=== PATIENT | female | born 1995 | race Caucasian/White ===

== ENCOUNTER 2021-04-14 05:00 | Inpatient (IN) | payer BC ==
[2021-04-14] MEDS ORDERED: Acetaminophen 500 MG Tab PO ONE (06:00)
[2021-04-14] MEDS ORDERED: Dextrose 5%-Lactated Ringers 1,000 ML IV SCH (06:00)
[2021-04-14] MEDS ORDERED: Celecoxib 200 MG Cap PO ONE (06:00)
[2021-04-14] MEDS ORDERED: cefOXitin 2 GM in Sodium Chloride 0.9% 50 ML IV ONE (06:00)
[2021-04-14] MEDS ORDERED: Scopolamine 1.5 MG Transdermal Patch TOP ONE (06:00)
[2021-04-14] MEDS ORDERED: Rocuronium 50 MG/5 ML Vial ONE ×2 (07:09→08:44)
[2021-04-14] MEDS ORDERED: Succinylcholine 200 MG/10 ML MDV ONE (07:09)
[2021-04-14] MEDS ORDERED: fentaNYL 250 MCG/5 ML SDV ONE ×2 (07:09→07:43)
[2021-04-14] MEDS ORDERED: Neostigmine Methylsulfate 1 MG/ML 5 ML Syringe ONE (07:09)
[2021-04-14] MEDS ORDERED: Propofol 200 MG/20 ML SDV ONE (07:09)
[2021-04-14] MEDS ORDERED: Ondansetron 4 MG/2 ML SDV ONE (07:09)
[2021-04-14] MEDS ORDERED: Dexamethasone 4 MG/ML SDV ONE (07:09)
[2021-04-14] MEDS ORDERED: Glycopyrrolate 0.2 MG/ML 5 ML MDV ONE (07:09)
[2021-04-14] MEDS ORDERED: Lactated Ringers 1,000 ML ONE (07:12)
[2021-04-14] MEDS ORDERED: Ketamine 500 MG/5 ML MDV IV SCH (07:30)
[2021-04-14] MEDS ORDERED: Ketamine 18 MG in Sodium Chloride 0.9% 19.82 ML IV SCH (07:30)
[2021-04-14] MEDS ORDERED: cefOXitin 2 GM Vial ONE (08:02)
[2021-04-14] MEDS ORDERED: cefOXitin 2 GM Vial IRR ONE (08:06)
[2021-04-14] MEDS ORDERED: Labetalol 20 MG/4 ML Syringe ONE (08:08)
[2021-04-14] MEDS ORDERED: Acetaminophen 500 MG Tab PO PRN (11:00)
[2021-04-14] MEDS ORDERED: Metoclopramide 10 MG/2 ML SDV IVPUSH PRN (11:00)
[2021-04-14] MEDS ORDERED: Ondansetron 4 MG/2 ML SDV IVPUSH PRN (11:00)
[2021-04-14] MEDS ORDERED: oxyCODONE 5 MG Tab PO PRN (11:00)
[2021-04-14] MEDS ORDERED: diphenhydrAMINE 50 MG/ML SDV IVPUSH PRN (11:00)
[2021-04-14] MEDS ORDERED: Labetalol 20 MG/4 ML Syringe IVPUSH PRN (11:00)
[2021-04-14] MEDS ORDERED: HYDROmorphone 0.5 MG/0.5 ML Syringe IVPUSH PRN (11:00)
[2021-04-14] MEDS ORDERED: hydrOXYzine HCL 100 MG/2 ML SDV IM PRN (11:00)
[2021-04-14] MEDS ORDERED: HYDROmorphone 1 MG/ML Syringe IV PRN (11:00)
[2021-04-14] MEDS ORDERED: Pantoprazole 40 MG Vial IVPUSH SCH (14:00)
[2021-04-14] MEDS: cefOXitin 2 GM in Sodium Chloride 0.9% 50 ML IV SCH ×2 (14:08→19:35)
[2021-04-14] MEDS: Acetaminophen 500 MG Tab PO SCH ×2 (14:10→21:22)
[2021-04-14] MEDS: Dextrose 5%-Lactated Ringers 1,000 ML IV SCH ×2 (14:10→23:34)
[2021-04-14] MEDS ORDERED: MVI, Adult with Vitamin K 10 ML, Thiamine 200 MG, Zinc/Copper/Manganese/Selenium 1 ML i... IV SCH ×4 (16:00)
[2021-04-14] MEDS: traMADol 50 MG Tab PO PRN ×2 (17:06→23:41)
[2021-04-14] MEDS: Heparin Sodium 5,000 Units/ML Vial SUBCUT SCH (17:08)
[2021-04-14] MEDS: Cyclobenzaprine 10 MG Tab PO PRN (19:34)
[2021-04-14] MEDS: traZODone 50 MG Tab PO SCH (21:23)
[2021-04-15] MEDS: cefOXitin 2 GM in Sodium Chloride 0.9% 50 ML IV SCH ×4 (01:58→19:32)
[2021-04-15] MEDS ORDERED: Iopamidol 612 MG/ML 50 ML SDV PO STA (03:23)
[2021-04-15] MEDS: Cyclobenzaprine 10 MG Tab PO PRN (04:15)
[2021-04-15] MEDS: Acetaminophen 500 MG Tab PO SCH ×3 (05:38→21:05)
[2021-04-15] MEDS: Heparin Sodium 5,000 Units/ML Vial SUBCUT SCH ×2 (05:38→17:06)
[2021-04-15] MEDS: Dextrose 5%-Lactated Ringers 1,000 ML IV SCH (05:43)
[2021-04-15] MEDS ORDERED: Ondansetron 4 MG Tab.DIS PO PRN (07:40)
[2021-04-15] MEDS ORDERED: Dextrose 5%-Lactated Ringers 1,000 ML IV SCH (07:45)
[2021-04-15] MEDS: SCOPOLAMINE PATCH CHECK TOP SCH (08:29)
[2021-04-15] MEDS: Celecoxib 200 MG Cap PO SCH ×2 (08:29→21:05)
[2021-04-15] MEDS: VYVANSE 30 MG PO SCH (08:30)
[2021-04-15] MEDS: Pantoprazole 40 MG Delayed-Release Granules 1 Packet PO SCH (11:26)
[2021-04-15] MEDS ORDERED: MVI, Adult with Vitamin K 10 ML, Thiamine 200 MG, Zinc/Copper/Manganese/Selenium 1 ML i... IV SCH ×4 (16:00)
[2021-04-15] MEDS: traZODone 50 MG Tab PO SCH (21:05)
[2021-04-16] MEDS: hydrOXYzine HCl 25 MG Tab PO PRN ×2 (02:27→09:11)
[2021-04-16] MEDS: cefOXitin 2 GM in Sodium Chloride 0.9% 50 ML IV SCH ×2 (02:27→08:00)
[2021-04-16] MEDS: Acetaminophen 500 MG Tab PO SCH (05:18)
[2021-04-16] MEDS: Heparin Sodium 5,000 Units/ML Vial SUBCUT SCH (05:18)
[2021-04-16] MEDS: Celecoxib 200 MG Cap PO SCH (08:36)
[2021-04-16] MEDS: SCOPOLAMINE PATCH CHECK TOP SCH (08:37)
[2021-04-16] MEDS: VYVANSE 30 MG PO SCH (08:38)
[2021-04-16] MEDS ORDERED: Cyanocobalamin (Vitamin B12) 1,000 MCG/ML SDV IM ONE (09:00)
[2021-04-16] MEDS: Pantoprazole 40 MG Delayed-Release Granules 1 Packet PO SCH (10:40)
== END 2021-04-16 11:00 | disposition home or self-care (01) | DRG 403 ==
LOC: JP.SDS 05:33 → JP.MS 05:33 → EDSTATUS 07:15 → JP.MS 10:34
PROVIDERS: ADMIT Surgery; ATTEND Surgery
PROC: 0D164ZA Bypass Stomach to Jejunum, Percutaneous Endoscopic Approach (ICD-10-PCS; principal; 2021-04-14)
PROC: 0FB24ZX Excision of Left Lobe Liver, Percutaneous Endoscopic Approach, Diagnostic (ICD-10-PCS; 2021-04-14)
PROC: 0BQT4ZZ Repair Diaphragm, Percutaneous Endoscopic Approach (ICD-10-PCS; 2021-04-14)
PROC: 0DB64ZZ Excision of Stomach, Percutaneous Endoscopic Approach (ICD-10-PCS; 2021-04-14)
DX: E66.01 Morbid (severe) obesity due to excess calories (principal); Z68.41 Body mass index [BMI] 40.0-44.9, adult; F90.9 Attention-deficit hyperactivity disorder, unspecified type; G43.909 Migraine, unspecified, not intractable, without status migrainosus; F39 Unspecified mood [affective] disorder; Z79.899 Other long term (current) drug therapy
CPT/HCPCS: 36415; 74240; 74240-26; 81025; 82947; 86850; 86900; 86901; A9270-GY; C9113; J0171; J0330; J0694; J1100; J1644; J2405; J2704; J2710; J2795; J3010; J3410; J3411; J3420; J3490; J7120; J7121; Q9967

== ENCOUNTER 2021-06-05 06:26 | Day surgery (SDC) | payer BC ==
[2021-06-05] MEDS: Lactated Ringers 1,000 ML IV SCH (07:12)
[2021-06-05] MEDS: Glycopyrrolate 0.2 MG/ML 2 ML SDV IVPUSH ONE (07:30)
[2021-06-05] MEDS: Cyanocobalamin (Vitamin B12) 1,000 MCG/ML SDV IM ONE (07:31)
[2021-06-05] MEDS: MVI, Adult with Vitamin K 10 ML, Thiamine 200 MG, Chromium/Copper/Mang/Selen/Zn 1 ML in... IV ONE ×4 (07:34)
[2021-06-05] MEDS ORDERED: Dexamethasone 4 MG/ML SDV ONE (07:43)
[2021-06-05] MEDS ORDERED: fentaNYL 100 MCG/2 ML SDV ONE (07:43)
[2021-06-05] MEDS ORDERED: Midazolam 1 MG/ML 2 ML SDV ONE (07:43)
[2021-06-05] MEDS ORDERED: Propofol 200 MG/20 ML SDV ONE (07:43)
[2021-06-05] MEDS ORDERED: Scopolamine 1.5 MG Transdermal Patch ONE (07:54)
== END 2021-06-05 10:45 | disposition home or self-care (01) ==
LOC: JP.SDS 06:26
PROVIDERS: ATTEND Surgery
DX: K91.89 Other postprocedural complications and disorders of digestive system (principal); E66.9 Obesity, unspecified; Z98.84 Bariatric surgery status; Z68.35 Body mass index [BMI] 35.0-35.9, adult
CPT/HCPCS: 81025; A9270-GY; C1726; J1100; J2250; J2704; J3010; J3411; J3420; J3490; J7120